=== PATIENT | female | born 1980 | race Two or more races ===

== ENCOUNTER 2018-09-25 12:47 | Emergency (ER) | payer SELFPAY ==
[~2018-09-25] VITALS: Ht 160 cm; Wt 81.6 kg
--- NOTE | 2018-09-25 13:37 | EKG ---
[facility] [address] [place] [address] Test Date: 2018-09-25 Test Time: 13:33:28 Pat Name: LUDA RODRIGUEZ Department: Room: Gender: F [employer]: : 1980 Requested By: LICHA GALLARDO Order Number: [id number] Reading MD: Measurements Intervals [place] Rate: 74 P: 21 OK: 112 QRS: 22 QRSD: 76 T: 10 QT: 370 QTc: 415 Interpretive Statements SINUS RHYTHM R-S TRANSITION ZONE IN V LEADS DISPLACED TO THE RIGHT OTHERWISE NORMAL ECG No previous ECG available for comparison
--- NOTE | 2018-09-25 13:43 | PHYS DOC ---
Adult General Chief Complaint Chief Complaint: SHORTNESS OF BREATH HPI HPI Patient is a 37 year old female who is presenting with a sensation of some shortness of breath for the last 3 weeks. She says she describes it as a globus sensation in other words she says she feels like something is stuck in her throat feels it is hard to breathe and she has intermittent tingling of bilateral hands this comes and goes throughout the day seemingly at random it seems somewhat worse at night when she is trying to sleep. She is not having any chest pain right now she has not had any recent chest pain no abdominal pain no vaginal bleeding no back pain she has been 4 times this is her fifth her last menstrual. Was a few months back. No prior history of blood clot no leg swelling. Review of Systems Review of Systems Constitutional: Denies fever or chills [] Eyes: Denies change in visual acuity, redness, or eye pain [] HENT: Denies nasal congestion or sore throat [] Respiratory: Cardiovascular: No additional information not addressed in HPI [] Musculoskeletal: Denies back pain or joint pain [] Integument: Denies rash or skin lesions [] Neurologic: Denies headache, All other systems were reviewed and found to be within normal limits, except as documented in this note. Allergies Allergies Allergies Coded Allergies Type Severity Reaction Last Updated Verified No Known Drug Allergies 09/25/18 No Physical Exam Physical Exam Constitutional: Well developed, well nourished, no acute distress, non-toxic appearance. [] HENT: Normocephalic, atraumatic, bilateral external ears normal, oropharynx moist, no oral exudates, nose normal. [] Eyes: PERRLA, EOMI, conjunctiva normal, no discharge. [] Neck: Normal range of motion, no tenderness, supple, no stridor. [] Cardiovascular:Heart rate regular rhythm, no murmur [] Lungs & Thorax: Bilateral breath sounds clear to auscultation [] Abdomen: Bowel sounds normal, soft, no tenderness, no masses, no pulsatile masses. [] Skin: Warm, dry, no erythema, no rash. [] Back: No tenderness, no CVA tenderness. [] Extremities: No tenderness, no cyanosis, no clubbing, ROM intact, no edema. [] Neurologic: Alert and oriented X 3, normal motor function, normal sensory function, no focal deficits noted. [] Psychologic: Affect normal, judgement normal, mood mild anxiety noted Current Patient Data Vital Signs Vital Signs Date Time Temp Pulse Resp B/P (MAP) Pulse Ox O2 Delivery O2 Flow Rate FiO2 09/25/18 13:15 98.3 80 20 134/81 (98) 98 Room Air 98.3 Lab Values Laboratory Tests Test 09/25/18 13:25 09/25/18 14:13 POC Urine HCG, Qualitative Hcg positive (Negative) White Blood Count 6.7 x10^3/uL (4.0-11.0) Red Blood Count 4.32 x10^6/uL (3.50-5.40) Hemoglobin 13.3 g/dL (12.0-15.5) Hematocrit 38.5 % (36.0-47.0) Mean Corpuscular Volume 89 fL (79-100) Mean Corpuscular Hemoglobin 31 pg (25-35) Mean Corpuscular Hemoglobin Concent 35 g/dL (31-37) Red Cell Distribution Width 12.5 % (11.5-14.5) Platelet Count 273 x10^3/uL (140-400) Neutrophils (%) (Auto) 67 % (31-73) Lymphocytes (%) (Auto) 23 % (24-48) L Monocytes (%) (Auto) 7 % (0-9) Eosinophils (%) (Auto) 3 % (0-3) Basophils (%) (Auto) 1 % (0-3) Neutrophils # (Auto) 4.5 x10^3uL (1.8-7.7) Lymphocytes # (Auto) 1.5 x10^3/uL (1.0-4.8) Monocytes # (Auto) 0.4 x10^3/uL (0.0-1.1) Eosinophils # (Auto) 0.2 x10^3/uL (0.0-0.7) Basophils # (Auto) 0.0 x10^3/uL (0.0-0.2) Sodium Level 138 mmol/L (136-145) Potassium Level 4.6 mmol/L (3.5-5.1) Chloride Level 105 mmol/L (98-107) Carbon Dioxide Level 23 mmol/L (21-32) Anion Gap 10 (6-14) Blood Urea Nitrogen 8 mg/dL (7-20) Creatinine 0.5 mg/dL (0.6-1.0) L Estimated GFR (Cockcroft-Gault) 139.6 BUN/Creatinine Ratio 16 (6-20) Glucose Level 94 mg/dL (70-99) Calcium Level 9.0 mg/dL (8.5-10.1) Total Bilirubin 0.3 mg/dL (0.2-1.0) Aspartate Amino Transferase (AST) 29 U/L (15-37) Alanine Aminotransferase (ALT) 29 U/L (14-59) Alkaline Phosphatase 71 U/L (46-116) Troponin I Quantitative < 0.017 ng/mL (0.000-0.055) PF-Gsa-I-Type Natriuretic Peptide 46 pg/mL (0-124) Total Protein 7.3 g/dL (6.4-8.2) Albumin 3.2 g/dL (3.4-5.0) L Albumin/Globulin Ratio 0.8 (1.0-1.7) L Laboratory Tests 09/25/18 14:13 Laboratory Tests 09/25/18 14:13 EKG EKG []EKG shows a normal sinus rhythm rate of 74 there are no acute ischemic changes noted this is interpreted by me the timing encounter. Radiology/Procedures Radiology/Procedures [] Impressions: INDINGS: A frontal view of the chest obtained. There is no infiltrate, pleural effusion or pneumothorax. The heart is normal in size. IMPRESSION: No acute pulmonary finding. Electronically signed by: Jessica Griffith MD (09/25/2018 1:53 PM) [place] [id number] DICTATED and SIGNED BY: JESSICA GRIFFITH MD DATE: 09/25/18 9114 Course & Med Decision Making Course & Med Decision Making Pertinent Labs and Imaging studies reviewed. (See chart for details) []37-year-old female who is first trimester presenting with globus sensation some mild shortness of breath normal sat normal lungs no respiratory distress at all no tachycardia and no leg swelling no signs of DVT or PE by history or examination this is strongly suggestive of anxiety/globus sensation in fact this is how she describes it specifically as though something was stuck in her throat her oropharyngeal exam is normal there is no strider she was reassured we did basic labs. pt felt better d/c home stable doncition Dragon Disclaimer Dragon Disclaimer This electronic medical record was generated, in whole or in part, using a voice recognition dictation system. Departure Departure Impression: Primary Impression: Dyspnea Disposition: 01 HOME, SELF-CARE Condition: STABLE Patient Instructions: Shortness of Breath, [id number] LICHA GALLARDO MD Sep 25, 2018 13:43
--- NOTE | 2018-09-25 13:58 | RAD ---
EXAM: Chest, single view. HISTORY: Shortness of air. COMPARISON: None. FINDINGS: A frontal view of the chest obtained. There is no infiltrate, pleural effusion or pneumothorax. The heart is normal in size. IMPRESSION: No acute pulmonary finding. Electronically signed by: Jessica Griffith MD (09/25/2018 1:53 PM) [place] [id number]
[2018-09-25 14:23] LABS: BASO % 1 % (0-3); EOS # 0.2 x10^3/uL (0.0-0.7); EOS % 3 % (0-3); HEMATOCRIT 38.5 % (36.0-47.0); HEMOGLOBIN 13.3 g/dL (12.0-15.5); LYMPH # 1.5 x10^3/uL (1.0-4.8); LYMPH % 23 % (24-48); MEAN CORPUSCULAR HEMOGLOBIN 31 pg (25-35); MEAN CORPUSCULAR HGB CONC 35 g/dL (31-37); MEAN CORPUSCULAR VOLUME 89 fL (79-100); MONO # 0.4 x10^3/uL (0.0-1.1); MONO % 7 % (0-9); NEUT # 4.5 x10^3uL (1.8-7.7); NEUT % 67 % (31-73); PLATELET COUNT 273 x10^3/uL (140-400); RED BLOOD COUNT 4.32 x10^6/uL (3.50-5.40); RED CELL DISTRIBUTION WIDTH 12.5 % (11.5-14.5); WHITE BLOOD COUNT 6.7 x10^3/uL (4.0-11.0)
[2018-09-25 14:37] LABS: CREATININE 0.5 mg/dL (0.6-1.0); GFR 139.6; POTASSIUM 4.6 mmol/L (3.5-5.1)
[2018-09-25 14:42] LABS: ALBUMIN 3.2 g/dL (3.4-5.0); ALBUMIN/GLOBULIN RATIO 0.8 (1.0-1.7); TOTAL BILIRUBIN 0.3 mg/dL (0.2-1.0); TOTAL PROTEIN 7.3 g/dL (6.4-8.2)
[2018-09-25 15:09] VITALS: BP 118/73
== END 2018-09-25 15:17 | disposition home or self-care (01) ==
LOC: ER 12:47
DX: O99.511 Diseases of the respiratory system complicating pregnancy, first trimester (principal); R06.00 Dyspnea, unspecified; R20.2 Paresthesia of skin; O99.341 Other mental disorders complicating pregnancy, first trimester; F41.9 Anxiety disorder, unspecified; Z3A.08 8 weeks gestation of pregnancy
CPT/HCPCS: 36415; 71045; 80053; 81025; 83880; 84484; 85025; 93005; 99284-25

== ENCOUNTER 2019-02-17 14:52 | Observation (INO) | payer SELFPAY ==
[2018-10-05 20:01] VITALS: BP 119/71
[~2019-02-17 14:52] MED LIST: NITR100C62 PO; ONDA4TAB7 PO
[2019-02-17] MEDS ORDERED: IV RINGERS,LACTATED 1000ML 1,000 ML IV SCH (15:03)
[2019-02-17 15:29] LABS: BILIRUBIN,URINE NEGATIVE (NEG); CLARITY,URINE CLEAR; COLOR,URINE YELLOW; NITRITE,URINE NEGATIVE (NEG); PH,URINE 6.5; PROTEIN,URINE NEGATIVE (NEG-TRACE); UROBILINOGEN,URINE 0.2 mg/dL (0.2 mg/dL)
[2019-02-17 15:43] LABS: BARBITURATES NEG (NEG); BENZODIAZEPINES NEG (NEG); CANNABINOIDS NEG (NEG); COCAINE NEG (NEG); METHADONE NEG (NEG); OPIATES NEG (NEG); PHENCYCLIDINE NEG (NEG)
[2019-02-17 15:44] LABS: BACTERIA,URINE MODERATE /HPF (0-FEW); RBC,URINE 0 /HPF (0-2); SQUAMOUS EPITHELIAL CELL,UR MANY /LPF; WBC,URINE TNTC /HPF (0-4)
[2019-02-17 15:45] LABS: AMPHETAMINE/METHAMPHETAMINE NEG (NEG)
== END 2019-02-17 16:11 | disposition home or self-care (01) ==
LOC: 3 SO LND 14:52
PROVIDERS: ADMIT Obstetrics & Gynecology; ATTEND Obstetrics & Gynecology
DX: O26.893 Other specified pregnancy related conditions, third trimester (principal); R10.30 Lower abdominal pain, unspecified; O99.89 Other specified diseases and conditions complicating pregnancy, childbirth and the puerperium; M54.5 Low back pain; Z3A.29 29 weeks gestation of pregnancy
CPT/HCPCS: 80307; 81001; 87086; G0379

== ENCOUNTER 2019-04-23 08:32 | Inpatient (IN) | payer SELFPAY ==
[~2019-04-23] VITALS: Ht 162.6 cm; Wt 95.3 kg
[2019-04-23] MEDS: IV RINGERS,LACTATED 1000ML 1,000 ML IV SCH ×3 (09:42→22:57)
[2019-04-23 09:48] LABS: BILIRUBIN,URINE NEGATIVE (NEG); CLARITY,URINE CLEAR; COLOR,URINE YELLOW; NITRITE,URINE NEGATIVE (NEG); PH,URINE 6.5; PROTEIN,URINE NEGATIVE (NEG-TRACE); UROBILINOGEN,URINE 0.2 mg/dL (0.2 mg/dL)
[2019-04-23 09:49] LABS: BACTERIA,URINE MANY /HPF (0-FEW); SQUAMOUS EPITHELIAL CELL,UR MANY /LPF; WBC,URINE 20-40 /HPF (0-4)
--- NOTE | 2019-04-23 11:43 | RAD ---
Examination: OB LIMITED History: Vaginal bleeding Comparison/Correlation: 10/05/2018 OB ultrasound EXAMINATION: OB LIMITED anatomy identified includes: Bladder, spine, bilateral lateral ventricles, stomach, heart, aorta, three-vessel cord insertion, bilateral kidneys, diaphragm, cerebellum, cisterna magna, bilateral upper extremities, and bilateral lower extremities. Cephalic lie evident. Placenta is at the anterior wall and is grade 3. Amniotic fluid index is 8.8 cm. heart rate is 145 bpm. Maternal cervical length of 4.2 cm is noted. measurements include: Biparietal diameter: 9.69 cm corresponding to 39 weeks 4 days. Femur length of 7.6 cm corresponding to 30 weeks 6 days. Head circumference of 34.03 cm corresponding to 39 weeks 1 day. Abdominal circumference of 35.29 cm corresponding to 39 weeks 1 day. Age by 4 parameters corresponds to her 39 weeks 1 day. EDC by average age is 04/29/2019. Gestational age by last menstrual period is 39 weeks 1 day. Cephalic index of 85.8 which is mildly above the normal range. H/A ratio is 0.96. FL/BPD is 78.4. FL/ AC is 21.5. IMPRESSION: Single living intrauterine gestation with age by 4 parameters corresponding to 39 weeks 1 day gestation. Cephalic lie. Placenta is at the anterior wall. No subchronic hemorrhage. Electronically signed by: Mayank Rutledge MD (04/23/2019 11:40 AM) [facility]
[2019-04-23 14:33] VITALS: BP 103/51
[2019-04-23] MEDS ORDERED: IV RINGERS,LACTATED 1000ML 1,000 ML IV SCH (15:24)
[2019-04-23] MEDS ORDERED: 0.9 % SODIUM CHLORIDE 10 ML DISP.SYRIN. IV PRN (15:30)
[2019-04-23] MEDS ORDERED: fentaNYL PF VIAL 100 MCG/2 ML VIAL IV PRN (15:30)
[2019-04-23] MEDS ORDERED: ONDANSETRON PF 4 MG/2 ML VIAL. IV PRN (15:30)
[2019-04-23] MEDS ORDERED: OXYTOCIN 30 UNIT/500 ML PREMIX 500 ML IV PRN ×2 (15:30)
[2019-04-23] MEDS ORDERED: NALBUPHINE 10 MG/ML AMPUL. IV PRN (15:30)
[2019-04-23] MEDS ORDERED: ACETAMINOPHEN 325 MG TABLET. PO PRN (15:30)
[2019-04-23] MEDS ORDERED: TERBUTALINE 1 MG/ML VIAL. SQ PRN (15:30)
[2019-04-23] MEDS ORDERED: LIDOCAINE 1% PF 30 ML VIAL. INJ PRN (15:30)
[2019-04-23 17:37] LABS: BASO % 0 % (0-3); EOS # 0.1 x10^3/uL (0.0-0.7); EOS % 1 % (0-3); HEMATOCRIT 33.9 % (36.0-47.0); HEMOGLOBIN 11.4 g/dL (12.0-15.5); LYMPH # 1.9 x10^3/uL (1.0-4.8); LYMPH % 21 % (24-48); MEAN CORPUSCULAR HEMOGLOBIN 30 pg (25-35); MEAN CORPUSCULAR HGB CONC 34 g/dL (31-37); MEAN CORPUSCULAR VOLUME 88 fL (79-100); MONO # 0.4 x10^3/uL (0.0-1.1); MONO % 5 % (0-9); NEUT # 6.8 x10^3/uL (1.8-7.7); NEUT % 74 % (31-73); PLATELET COUNT 260 x10^3/uL (140-400); RED BLOOD COUNT 3.85 x10^6/uL (3.50-5.40); RED CELL DISTRIBUTION WIDTH 12.9 % (11.5-14.5); WHITE BLOOD COUNT 9.3 x10^3/uL (4.0-11.0)
[2019-04-24] MEDS ORDERED: OXYTOCIN PREMIX 30 UNIT/500 ML NS BAG. IV ONE (05:00)
[2019-04-24] MEDS ORDERED: MMR per PROTOCOL. MC PRN (05:09)
[2019-04-24] MEDS ORDERED: ACETAMINOPHEN 325 MG TABLET. PO PRN (05:15)
[2019-04-24] MEDS ORDERED: OXYTOCIN 30 UNIT/500 ML PREMIX 500 ML IV PRN (05:15)
[2019-04-24] MEDS ORDERED: ZOLPIDEM 5 MG TABLET. PO PRN (05:15)
[2019-04-24] MEDS ORDERED: diphenhydrAMINE HCL 25 MG CAPSULE PO PRN (05:15)
[2019-04-24] MEDS ORDERED: SIMETHICONE 80 MG TAB.CHEW PO PRN (05:15)
[2019-04-24] MEDS ORDERED: IBUPROFEN 400 MG TABLET. PO PRN (05:15)
[2019-04-24] MEDS ORDERED: MAG HYDROX/ALUMINUM HYD/SIMETH 30 ML ORAL.SUSP PO PRN (05:15)
[2019-04-24] MEDS ORDERED: BENZOCAINE 20% TOPICAL AEROSOL SPRAY 57GM CAN. TP PRN (05:15)
[2019-04-24] MEDS ORDERED: HYDROCORTISONE 1% TOPICAL OINTMENT 30GM TUBE. TP PRN (05:15)
[2019-04-24] MEDS ORDERED: 0.9 % SODIUM CHLORIDE 10 ML DISP.SYRIN. IV PRN (05:15)
[2019-04-24] MEDS ORDERED: MAGNESIUM HYDROXIDE 2,400 MG/30 ML ORAL.SUSP. PO PRN (05:15)
[2019-04-24] MEDS ORDERED: PHENYLEPH/MINERAL OIL/PETROLAT RECTAL OINTMENT 57GM TUBE. RC PRN (05:15)
--- NOTE | 2019-04-24 05:15 | PDOC1 ---
OB - History Hx of Present Care: Limited Care Ultrasounds: Normal mid trimester US Obstetrical Complications: None Medical Complications: None Past Family/Social History * Past Medical, Surgical, Family and Obstetric Histories reviewed from chart. Blood Type: O+ Rubella: Immune RPR/VDRL: Negative GBS Status: Negative HBsAG: Negative OB - Chief Complaint & HPI Date of Admission: Date of Admission: Apr 23, 2019 at 14:52 Chief Complaint/History : 5 EDC: May 02, 2019 Reason for admission: active labor Admission Nurse Assessment Rev: Yes OB - Admission Exam Physical Exam Vitals: VS - Last 72 Hours, by Label Date Time Temp Pulse Resp B/P (MAP) Pulse Ox O2 Delivery O2 Flow Rate FiO2 04/23/19 14:33 98.0 20 103/51 (68) 98.0 HEENT: Normal, Nasal Mucosa Normal, Oropharynx Normal, Moist Membranes, Fontanelles Normal Heart: Regular Rate Lungs: Clear, Equal Abdomen: Gravid Extremities: Normal Pulses, No tenderness or swelling Reflexes: Normal Cervical Dilatation: 1cm Effacement: 25% Station: Ballotable Membranes: Intact Amniotic Fluid: Clear Heart Rate: Normal Accelerations: Accelerations Present Decelerations: No decelerations Short Term Variability: Present Contractions on Admission: 6-10 Minutes Apart Intensity: Mild Assessment/Plan Assessment/Plan TIUP ACS KOKO ZAVALETA MD Apr 24, 2019 05:15
--- NOTE | 2019-04-24 05:21 | PDOC ---
VAGINAL DELIVERY DATE DATE: 04/24/19 TIME: 05:19 : 5 Para: 4 EDC: May 02, 2019 VAGINAL DELIVERY: VTX VACCUM ASSISTED: No PLACENTA: Spontaneous SEX: Male WEIGHT Weight [ ] Nuchal Cord: Yes, Times 1, Loose Amniotic Fluid: Clear PAIN: Natural EPISIOTOMY: No EBL 300cc COMPLICATIONS None CONDITION Stable Signs of Intrauterine Infectio: None Shoulder Dystocia: No DIAGNOSIS TIKOKO Patel MD Apr 24, 2019 05:21
[2019-04-24] MEDS: IBUPROFEN 400 MG TABLET. PO SCH ×3 (07:28→22:00)
[2019-04-24 09:00] VITALS: BP 120/74
[2019-04-24 09:35] VITALS: BP 106/67
[2019-04-24 10:40] VITALS: BP 94/48
[2019-04-24 15:00] VITALS: BP 92/52
[2019-04-24 18:23] VITALS: BP 115/63
[2019-04-24 21:23] VITALS: BP 106/65
[2019-04-25] VITALS: BP 87/48
[2019-04-25 04:15] VITALS: BP 111/72
[2019-04-25] MEDS: IBUPROFEN 400 MG TABLET. PO SCH ×2 (06:00→21:30)
[2019-04-25] MEDS: FERROUS SULFATE 325 MG TABLET. PO SCH ×2 (08:00→17:00)
[2019-04-25 11:30] VITALS: BP 103/68
--- NOTE | 2019-04-25 14:13 | PDOC ---
Provider Note Provider Note No Complaints Uterus NTTP FU in AM Vital Sign - Last 24 Hours 04/24/19 04/24/19 04/24/19 04/25/19 15:00 18:23 21:23 00:00 Temp 97.8 98.8 97.9 98.7 97.8 98.8 97.9 98.7 Pulse 87 98 86 92 Resp 18 16 20 18 B/P (MAP) 92/52 (65) 115/63 (80) 106/65 (79) 87/48 (61) Pulse Ox 98 98 O2 Delivery Room Air Room Air Room Air Room Air 04/25/19 04:15 Temp 98.2 98.2 Pulse 85 Resp 20 B/P (MAP) 111/72 (85) O2 Delivery Room Air Intake and Output 0 04/24/19 04/24/19 04/25/19 15:00 23:00 07:00 Intake Total 1000 ml Balance 1000 ml CBC - BMP 04/25/19 06:25 KOKO ZAVALETA MD Apr 25, 2019 14:13
[2019-04-25 17:37] VITALS: BP 117/79
[2019-04-25 21:00] VITALS: BP 118/80
[2019-04-26 06:00] VITALS: BP 107/67
[2019-04-26] MEDS: IBUPROFEN 400 MG TABLET. PO SCH ×2 (06:00→08:13)
[2019-04-26] MEDS: FERROUS SULFATE 325 MG TABLET. PO SCH ×2 (08:00→08:13)
--- NOTE | 2019-04-26 09:06 | PDOC3 ---
OB DISCHARGE SUMMARY DATE OF ADMISSION: 04/24/19 DATE OF DISCHARGE: 04/26/19 REASON FOR ADMISSION: Onset of labor PROCEDURES: Ultrasound INTRAPARTUM PROCEDURES: Spontanous Vag Deliv PROCEDURES: None OPERATIONS: None DISCHARGE DIAGNOSIS: Term Delivered DISCHARGE INFORMATION: Activity, Diet HOSPITAL COURSE Unremarkable CONDITION AT DISCHARGE Stable KOKO ZAVALETA MD Apr 26, 2019 09:06
[2019-04-26] MEDS ORDERED: NAPR-514 PO (09:08)
[2019-04-26] MEDS ORDERED: HYDR-3164 PO (09:08)
[2019-04-26 09:16] VITALS: BP 109/70
[2019-04-26 12:30] VITALS: BP 107/71
== END 2019-04-26 12:30 | disposition home or self-care (01) | DRG 807 ==
LOC: 3 SO LND 08:32 → OBSVTOIN 14:52 → 3 NORTH 04-24 09:00
PROVIDERS: ADMIT Specialist; ATTEND Specialist
PROC: 10E0XZZ Delivery of Products of Conception, External Approach (ICD-10-PCS; principal; 2019-04-23)
DX: O69.81X0 Labor and delivery complicated by cord around neck, without compression, not applicable or unspecified (principal); Z37.0 Single live birth; Z3A.39 39 weeks gestation of pregnancy
CPT/HCPCS: 36415; 76815; 81001; 85014; 85025; 86592; 86850; 86900; 86901; 87086; G0378; G0379; J2590; J7120

== ENCOUNTER 2019-10-21 01:50 | Emergency (ER) | payer SELFPAY ==
[~2019-10-21] VITALS: Ht 162.6 cm; Wt 90.1 kg
[~2019-10-21 01:50] MED LIST changes: +HYDR-3164 PO; +NAPR-514 PO
[2019-10-21 01:51] VITALS: BP 134/63
[2019-10-21 02:28] LABS: BILIRUBIN,URINE NEGATIVE (NEG); CLARITY,URINE TURBID; COLOR,URINE YELLOW; NITRITE,URINE NEGATIVE (NEG); PH,URINE 6.5; PROTEIN,URINE NEGATIVE (NEG-TRACE)
[2019-10-21] MEDS ORDERED: ONDANSETRON PF 4 MG/2 ML VIAL. IV ONE (02:30)
[2019-10-21] MEDS ORDERED: IV NORMAL SALINE 1000ML BAG 1,000 ML IV SCH (02:30)
[2019-10-21 02:37] LABS: BACTERIA,URINE 0 /HPF (0-FEW); SQUAMOUS EPITHELIAL CELL,UR MOD /LPF
[2019-10-21 03:01] LABS: BASO # 0.1 x10^3/uL (0.0-0.2); BASO % 1 % (0-3); EOS # 0.1 x10^3/uL (0.0-0.7); EOS % 1 % (0-3); HEMATOCRIT 39.6 % (36.0-47.0); HEMOGLOBIN 13.1 g/dL (12.0-15.5); LYMPH # 1.6 x10^3/uL (1.0-4.8); LYMPH % 21 % (24-48); MEAN CORPUSCULAR HEMOGLOBIN 28 pg (25-35); MEAN CORPUSCULAR HGB CONC 33 g/dL (31-37); MEAN CORPUSCULAR VOLUME 85 fL (79-100); MONO # 0.5 x10^3/uL (0.0-1.1); MONO % 6 % (0-9); NEUT # 5.6 x10^3/uL (1.8-7.7); NEUT % 72 % (31-73); PLATELET COUNT 266 x10^3/uL (140-400); RED BLOOD COUNT 4.65 x10^6/uL (3.50-5.40); RED CELL DISTRIBUTION WIDTH 13.9 % (11.5-14.5); WHITE BLOOD COUNT 7.8 x10^3/uL (4.0-11.0)
--- NOTE | 2019-10-21 03:23 | PHYS DOC ---
Past Medical History Past Medical History: No Pertinent History Past Surgical History: No Surgical History Alcohol Use: Occasionally Drug Use: None Adult General Chief Complaint Chief Complaint: NAUSEA/VOMITING/DIARRHA HPI HPI Patient is a 38 year old female without history of medical problem who presents via EMS with complaint of nausea and vomiting and diarrhea. Patient complains of more than 10 episodes of nonbloody vomiting daily for the last 2 days and one episode of diarrhea without abdominal pain, fever and chills, sick contact, urinary symptom. She states her LMP was October 10 and not sure about . Review of Systems Review of Systems Constitutional: Denies fever or chills [] Eyes: Denies change in visual acuity, redness, or eye pain [] HENT: Denies nasal congestion or sore throat [] Respiratory: Denies cough or shortness of breath [] Cardiovascular: No additional information not addressed in HPI [] GI: Denies abdominal pain, reports nausea, vomiting, diarrhea [] : Denies dysuria or hematuria [] Musculoskeletal: Denies back pain or joint pain [] Integument: Denies rash or skin lesions [] Neurologic: Denies headache, focal weakness or sensory changes [] Endocrine: Denies polyuria or polydipsia [] All other systems were reviewed and found to be within normal limits, except as documented in this note. Current Medications Current Medications Current Medications Medications (Trade) Dose Ordered Sig/Abdon Start Time Stop Time Status Last Admin Dose Admin Ondansetron HCl (Zofran) 4 mg 1X ONCE 10/21/19 02:30 10/21/19 02:31 DC 10/21/19 03:31 4 MG Sodium Chloride 1,000 ml @ 1,000 mls/hr Q1H 10/21/19 02:30 10/21/19 03:29 DC 10/21/19 03:31 1,000 MLS/HR Allergies Allergies Allergies Coded Allergies Type Severity Reaction Last Updated Verified No Known Drug Allergies 09/25/18 No Physical Exam Physical Exam Constitutional: Well developed, well nourished, mild distress, non-toxic appearance. [] HENT: Normocephalic, atraumatic, bilateral external ears normal, oropharynx moist, no oral exudates, nose normal. [] Eyes: PERRLA, EOMI, conjunctiva normal, no discharge. [] Neck: Normal range of motion, no tenderness, supple, no stridor. [] Cardiovascular:Heart rate regular rhythm, no murmur [] Lungs & Thorax: Bilateral breath sounds clear to auscultation [] Abdomen: Bowel sounds normal, soft, no tenderness, no masses, no pulsatile masses. [] Skin: Warm, dry, no erythema, no rash. [] Back: No tenderness, no CVA tenderness. [] Extremities: No tenderness, no cyanosis, no clubbing, ROM intact, no edema. [] Neurologic: Alert and oriented X 3, normal motor function, normal sensory function, no focal deficits noted. [] Psychologic: Affect normal, judgement normal, mood normal. [] Current Patient Data Vital Signs Vital Signs Date Time Temp Pulse Resp B/P (MAP) Pulse Ox O2 Delivery O2 Flow Rate FiO2 10/21/19 01:51 98.7 84 18 134/63 (86) 99 Room Air 98.7 Lab Values Laboratory Tests Test 10/21/19 01:45 10/21/19 02:23 10/21/19 02:52 Urine Collection Type Unknown Urine Color Yellow Urine Clarity Turbid Urine pH 6.5 Urine Specific [place] 1.025 Urine Protein Negative mg/dL (NEG-TRACE) Urine Glucose (UA) Negative mg/dL (NEG) Urine Ketones (Stick) 15 mg/dL (NEG) Urine Blood Trace (NEG) Urine Nitrite Negative (NEG) Urine Bilirubin Negative (NEG) Urine Urobilinogen Dipstick 1.0 mg/dL (0.2 mg/dL) Urine Leukocyte Esterase Negative (NEG) Urine RBC 1-2 /HPF (0-2) Urine WBC 1-4 /HPF (0-4) Urine Squamous Epithelial Cells Mod /LPF Urine Bacteria 0 /HPF (0-FEW) Urine Mucus Marked /LPF POC Urine HCG, Qualitative Hcg negative (Negative) White Blood Count 7.8 x10^3/uL (4.0-11.0) Red Blood Count 4.65 x10^6/uL (3.50-5.40) Hemoglobin 13.1 g/dL (12.0-15.5) Hematocrit 39.6 % (36.0-47.0) Mean Corpuscular Volume 85 fL (79-100) Mean Corpuscular Hemoglobin 28 pg (25-35) Mean Corpuscular Hemoglobin Concent 33 g/dL (31-37) Red Cell Distribution Width 13.9 % (11.5-14.5) Platelet Count 266 x10^3/uL (140-400) Neutrophils (%) (Auto) 72 % (31-73) Lymphocytes (%) (Auto) 21 % (24-48) L Monocytes (%) (Auto) 6 % (0-9) Eosinophils (%) (Auto) 1 % (0-3) Basophils (%) (Auto) 1 % (0-3) Neutrophils # (Auto) 5.6 x10^3/uL (1.8-7.7) Lymphocytes # (Auto) 1.6 x10^3/uL (1.0-4.8) Monocytes # (Auto) 0.5 x10^3/uL (0.0-1.1) Eosinophils # (Auto) 0.1 x10^3/uL (0.0-0.7) Basophils # (Auto) 0.1 x10^3/uL (0.0-0.2) Sodium Level 141 mmol/L (136-145) Potassium Level 3.7 mmol/L (3.5-5.1) Chloride Level 105 mmol/L (98-107) Carbon Dioxide Level 25 mmol/L (21-32) Anion Gap 11 (6-14) Blood Urea Nitrogen 6 mg/dL (7-20) L Creatinine 0.5 mg/dL (0.6-1.0) L Estimated GFR (Cockcroft-Gault) 138.8 BUN/Creatinine Ratio 12 (6-20) Glucose Level 113 mg/dL (70-99) H Calcium Level 8.8 mg/dL (8.5-10.1) Total Bilirubin 0.3 mg/dL (0.2-1.0) Aspartate Amino Transferase (AST) 27 U/L (15-37) Alanine Aminotransferase (ALT) 39 U/L (14-59) Alkaline Phosphatase 83 U/L (46-116) Total Protein 7.3 g/dL (6.4-8.2) Albumin 3.9 g/dL (3.4-5.0) Albumin/Globulin Ratio 1.1 (1.0-1.7) Lipase 58 U/L (73-393) L Laboratory Tests 10/21/19 02:52 Laboratory Tests 10/21/19 02:52 EKG EKG [] Radiology/Procedures Radiology/Procedures [] Course & Med Decision Making Course & Med Decision Making Pertinent Labs reviewed. (See chart for details) Evaluation of patient in ER showed 38-year-old female patient with complaining of frequent episodes of nausea and vomiting for the last 2 days and few episode of diarrhea. Patient had unremarkable physical exam vital signs and labs and felt better with IV fluid and Zofran and tolerated oral intake. Patient was advised to takes liquid diet today and prescription for Zofran was given. I've spoken with the patient and/or caregivers. I've explained the patient's condition, diagnosis and treatment plan based on information available to me at this time. I've answered the patient's and/or caregivers questions and addressed any concerns. The patient and/or caregivers have a good understanding the patient's diagnosis, condition and treatment plan as can be expected at this point. Vital signs have been stabilized. The patient's condition is stable for discharge from the emergency department. The patient will pursue further outpatient evaluation with her primary care pro vider or other designated consulting physician as outlined in the discharge instructions. Patient and/or caregivers are agreeable to this plan of care and follow-up instructions have been explained in detail. The patient and/or caregivers have received these instructions in written format and expressed understanding of these discharge instructions. The patient and her caregivers are aware that if any significant change in condition or worsening of symptoms should prompt him to immediately return to this of the closest emergency department. If an emergent department is not readily available I would encourage him to call 911. Brenda Disclaimer Dragon Disclaimer This electronic medical record was generated, in whole or in part, using a voice recognition dictation system. Departure Departure Impression: Primary Impression: Acute gastroenteritis Disposition: HOME, SELF-CARE (at 0411) Condition: IMPROVED Referrals: NO PCP (PCP) Patient Instructions: Viral Gastroenteritis Additional Instructions: Drink plenty of liquids Follow-up with your primary care physician in 3-5 days Return to ER if not getting better Do not eat solid food today Scripts Ondansetron Hcl (ZOFRAN) 4 Mg Tablet 1 TAB PO PRN Q6-8HRS for nausea, #12 TAB Prov: REYNA HALL MD 10/21/19 REYNA HALL MD Oct 21, 2019 03:23
[2019-10-21 03:25] LABS: CALCIUM 8.8 mg/dL (8.5-10.1); CREATININE 0.5 mg/dL (0.6-1.0); GFR 138.8; POTASSIUM 3.7 mmol/L (3.5-5.1)
[2019-10-21 03:32] LABS: ALBUMIN 3.9 g/dL (3.4-5.0); ALBUMIN/GLOBULIN RATIO 1.1 (1.0-1.7); TOTAL BILIRUBIN 0.3 mg/dL (0.2-1.0); TOTAL PROTEIN 7.3 g/dL (6.4-8.2)
[2019-10-21] MEDS ORDERED: ONDA4TAB7 PO (04:13)
== END 2019-10-21 04:28 | disposition home or self-care (01) ==
LOC: ER 01:50
DX: K52.9 Noninfective gastroenteritis and colitis, unspecified (principal); R11.2 Nausea with vomiting, unspecified
CPT/HCPCS: 36415; 80053; 81001; 81025; 83690; 85025; 96361; 96374; 99284; J2405; J7030

== ENCOUNTER 2020-12-15 08:37 | Emergency (ER) | payer SELFPAY ==
[~2020-12-15] VITALS: Ht 160 cm; Wt 84.0 kg
[2020-12-15 08:41] VITALS: BP 152/94
[2020-12-15] MEDS ORDERED: ACETAMINOPHEN 500 MG TABLET PO ONE (08:45)
--- NOTE | 2020-12-15 09:59 | ED.ADGEN ---
Past Medical History Past Medical History: No Pertinent History Past Surgical History: No Surgical History Smoking Status: Never Smoker Alcohol Use: Occasionally Drug Use: None General Adult EDM: Chief Complaint: FEVER HPI: HPI: Patient is a 40-year-old female who presents to the emergency room complaining of diffuse body aches and fever that started this morning. Patient states that she got the Moderna Covid vaccine yesterday. She did take Tylenol prior to the vaccine but did not take any since. She states she felt fine yesterday but today has had these diffuse aches. She denies any cough, sore throat, headache, nausea, vomiting, abdominal pain, chest pain. Review of Systems: Review of Systems: Complete ROS is negative unless otherwise documented in HPI Current Medications: Current Medications Medications (Trade) Dose Ordered Sig/Abdon Start Time Stop Time Status Last Admin Dose Admin Acetaminophen (Tylenol) 1,000 mg 1X ONCE 12/15/20 08:45 12/15/20 08:48 DC 12/15/20 08:55 1,000 MG Allergies: Allergies: Allergies Coded Allergies Type Severity Reaction Last Updated Verified No Known Drug Allergies 09/25/18 No Physical Exam: PE: General: Awake, alert, NAD. Well Nourished, well hydrated. Cooperative HEENT: Atraumatic, EOMI, PERRL, airway patent, moist oral mucosa Neck: Supple, trachea midline Respiratory: CTA bilaterally, normal effort, no wheezing/crackles CV: Tachycardia, no murmur, cap refill <2 GI: Soft, nondistended, nontender, no masses MSK: No obvious deformities Skin: Warm, dry, intact Neuro: A&O x3, speech NL, sensory and motor grossly intact, no focal deficits Psych: Normal affect, normal mood, not suicidal or homicidal Current Patient Data: Vital Signs: Vital Signs Date Time Temp Pulse Resp B/P (MAP) Pulse Ox O2 Delivery O2 Flow Rate FiO2 12/15/20 08:41 98.3 116 20 152/94 (113) 96 Room Air 98.3 EKG: EKG: [] Heart Score: C/O Chest Pain: N/A Risk Factors: Risk Factors: DM, Current or recent (<one month) smoker, HTN, HLP, family history of CAD, obesity. Risk Scores: Score 0 - 3: 2.5% MACE over next 6 weeks - Discharge Home Score 4 - 6: 20.3% MACE over next 6 weeks - Admit for Clinical Observation Score 7 - 10: 72.7% MACE over next 6 weeks - Early Invasive Strategies Radiology/Procedures: Radiology/Procedures: [] Course & Med Decision Making: Course & Med Decision Making Pertinent Labs and Imaging studies reviewed. (See chart for details) Patient is a 40-year-old female who presents to the emergency room complaining of diffuse body aches and fever after vaccine yesterday. Patient does not have any other associated symptoms. Is likely that this is either viral in nature or a side effect of the vaccine. I have discussed with patient taking ibuprofen and Tylenol. We have discussed that she needs to stay hydrated. Patient's test results and vitals while in the ED were fully reviewed and discussed with the patient. Patient is stable and at this time does not need admission to the hospital. We have discussed strict return precautions and the importance of following up with their Primary Care Physician. Patient stated understanding and was given an opportunity to ask any questions. Patient is in agreement with plan. Brenda Disclaimer: Brenda Disclaimer: This electronic medical record was generated, in whole or in part, using a voice recognition dictation system. Departure Departure Impression: Primary Impression: Vaccine reaction Disposition: 01 DC HOME SELF CARE/HOMELESS Condition: STABLE Referrals: NO PCP (PCP) Patient Instructions: Fever ROLAND MARINELLI MD Dec 15, 2020 09:59
== END 2020-12-15 10:07 | disposition home or self-care (01) ==
LOC: ER 08:37
DX: R50.83 Postvaccination fever (principal); R52 Pain, unspecified
CPT/HCPCS: 99282

== ENCOUNTER 2021-04-26 21:10 | Emergency (ER) | payer SELFPAY ==
[~2021-04-26] VITALS: Ht 160 cm; Wt 95.4 kg
[2021-04-27 00:01] LABS: BILIRUBIN,URINE NEGATIVE (NEG); CLARITY,URINE CLEAR; COLOR,URINE YELLOW; NITRITE,URINE NEGATIVE (NEG); PROTEIN,URINE NEGATIVE (NEG-TRACE); UROBILINOGEN,URINE 0.2 mg/dL (0.2 mg/dL)
[2021-04-27 00:06] LABS: BACTERIA,URINE MODERATE /HPF (0-FEW); RBC,URINE 0 /HPF (0-2)
--- NOTE | 2021-04-27 00:45 | PHYS DOC ---
Past Medical History Past Medical History: No Pertinent History (ALBAN GUAN MOTOR BOSS) Past Surgical History: No Surgical History (ALBAN GUAN MOTOR BOSS) Smoking Status: Never Smoker Alcohol Use: Occasionally Drug Use: None (KIALBAN Lewis MOTOR BOSS) General Adult EDM: Chief Complaint: ABDOMINAL PAIN IN HPI: HPI: Patient is a 40 year old female 6 para 5 currently 13 weeks presenting to the ED today with multiple complaints. Patient states for the last 1 week she has had left lower quadrant/pelvic pain. Patient describes the pain as a bloating. She rates the pain is mild and intermittent. Denies any vaginal bleeding, denies any nausea vomiting. Denies any unusual vaginal discharge, denies any concerns for STDs. She is also complaining intermittent mild generalized headaches. Denies any chest pain or shortness of breath. 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 She has an appointment at the end of this month. She states her blood pressure was high at home 130s over 80s Patient speaks a little [place] and her family members interpreting for [place]ish (KIALBAN Lewis MOTOR BOSS) Review of Systems: Review of Systems: Constitutional: Denies fever or chills. [] Eyes: Denies change in visual acuity. [] HENT: Denies nasal congestion or sore throat. [] Respiratory: Denies cough or shortness of breath. [] Cardiovascular: Denies chest pain or edema. [] GI: Reports abdominal pain in , denies nausea, vomiting, bloody stools or diarrhea. [] : Denies dysuria. [] Musculoskeletal: Denies back pain or joint pain. [] Integument: Denies rash. [] Neurologic: Reports headaches, denies focal weakness or sensory changes. [] [] Psychiatric: Denies depression or anxiety. [] (ALBAN GUAN MOTOR BOSS) Heart Score: C/O Chest Pain: N/A Risk Factors: Risk Factors: DM, Current or recent (<one month) smoker, HTN, HLP, family history of CAD, obesity. Risk Scores: Score 0 - 3: 2.5% MACE over next 6 weeks - Discharge Home Score 4 - 6: 20.3% MACE over next 6 weeks - Admit for Clinical Observation Score 7 - 10: 72.7% MACE over next 6 weeks - Early Invasive Strategies (ALBAN GUAN MOTOR BOSS) Allergies: Allergies: Allergies Coded Allergies Type Severity Reaction Last Updated Verified No Known Drug Allergies 09/25/18 No (ALBAN GUAN Arsenio MOTOR BOSS) Physical Exam: PE: Constitutional: Well developed, well nourished, no acute distress, non-toxic appearance. [] HENT: Normocephalic, atraumatic, bilateral external ears normal, oropharynx moist, no oral exudates, nose normal. [] Eyes: PERRLA, EOMI, conjunctiva normal, no discharge. [] Neck: Normal range of motion, no tenderness, supple, no stridor. [] Cardiovascular:Heart rate regular rhythm, no murmur [] Lungs & Thorax: Bilateral breath sounds clear to auscultation [] Abdomen: Gravid abdomen. Bowel sounds normal, soft, no tenderness, no masses, no pulsatile masses. [] Skin: Warm, dry, no erythema, no rash. [] Back: No tenderness, no CVA tenderness. [] Extremities: No tenderness, no cyanosis, no clubbing, ROM intact, no edema. [] Neurologic: Alert and oriented X 3, normal motor function, normal sensory function, no focal deficits noted. [] Psychologic: Affect normal, judgement normal, mood normal. [] (ALBAN GUAN MOTOR BOSS) Current Patient Data: Labs: Laboratory Tests Test 04/26/21 23:50 04/26/21 23:56 Urine Collection Type Unknown Urine Color Yellow Urine Clarity Clear Urine pH 7.0 (<5.0-8.0) Urine Specific [place] <=1.005 (1.000-1.030) Urine Protein Negative mg/dL (NEG-TRACE) Urine Glucose (UA) Negative mg/dL (NEG) Urine Ketones (Stick) Negative mg/dL (NEG) Urine Blood Negative (NEG) Urine Nitrite Negative (NEG) Urine Bilirubin Negative (NEG) Urine Urobilinogen Dipstick 0.2 mg/dL (0.2 mg/dL) Urine Leukocyte Esterase Trace (NEG) Urine RBC 0 /HPF (0-2) Urine WBC 5-10 /HPF (0-4) Urine Squamous Epithelial Cells Mod /LPF Urine Bacteria Moderate /HPF (0-FEW) Urine Mucus Slight /LPF POC Urine HCG, Qualitative Hcg positive (Negative) (ALBAN GUAN Labs: Laboratory Tests Test 04/26/21 23:50 04/26/21 23:56 04/27/21 03:00 04/27/21 03:05 Urine Collection Type Unknown Urine Color Yellow Urine Clarity Clear Urine pH 7.0 (<5.0-8.0) Urine Specific [place] <=1.005 (1.000-1.030) Urine Protein Negative mg/dL (NEG-TRACE) Urine Glucose (UA) Negative mg/dL (NEG) Urine Ketones (Stick) Negative mg/dL (NEG) Urine Blood Negative (NEG) Urine Nitrite Negative (NEG) Urine Bilirubin Negative (NEG) Urine Urobilinogen Dipstick 0.2 mg/dL (0.2 mg/dL) Urine Leukocyte Esterase Trace (NEG) Urine RBC 0 /HPF (0-2) Urine WBC 5-10 /HPF (0-4) Urine Squamous Epithelial Cells Mod /LPF Urine Bacteria Moderate /HPF (0-FEW) Urine Mucus Slight /LPF Bedside Urine HCG, Qualitative Hcg positive (Negative) White Blood Count 6.0 x10^3/uL (4.0-11.0) Red Blood Count 3.64 x10^6/uL (3.50-5.40) Hemoglobin 11.5 g/dL (12.0-15.5) Hematocrit 32.8 % (36.0-47.0) Mean Corpuscular Volume 90 fL (79-100) Mean Corpuscular Hemoglobin 32 pg (25-35) Mean Corpuscular Hemoglobin Concent 35 g/dL (31-37) Red Cell Distribution Width 12.8 % (11.5-14.5) Platelet Count 205 x10^3/uL (140-400) Neutrophils (%) (Auto) 60 % (31-73) Lymphocytes (%) (Auto) 30 % (24-48) Monocytes (%) (Auto) 7 % (0-9) Eosinophils (%) (Auto) 2 % (0-3) Basophils (%) (Auto) 1 % (0-3) Neutrophils # (Auto) 3.6 x10^3/uL (1.8-7.7) Lymphocytes # (Auto) 1.8 x10^3/uL (1.0-4.8) Monocytes # (Auto) 0.4 x10^3/uL (0.0-1.1) Eosinophils # (Auto) 0.1 x10^3/uL (0.0-0.7) Basophils # (Auto) 0.0 x10^3/uL (0.0-0.2) Sodium Level 135 mmol/L (136-145) Potassium Level 3.6 mmol/L (3.5-5.1) Chloride Level 103 mmol/L (98-107) Carbon Dioxide Level 24 mmol/L (21-32) Anion Gap 8 (6-14) Blood Urea Nitrogen 7 mg/dL (7-20) Creatinine 0.6 mg/dL (0.6-1.0) Estimated GFR (Cockcroft-Gault) 111.3 BUN/Creatinine Ratio 12 (6-20) Glucose Level 90 mg/dL (70-99) Calcium Level 8.3 mg/dL (8.5-10.1) Total Bilirubin 0.1 mg/dL (0.2-1.0) Aspartate Amino Transf (AST/SGOT) 12 U/L (15-37) Alanine Aminotransferase (ALT/SGPT) 21 U/L (14-59) Alkaline Phosphatase 61 U/L (46-116) Total Protein 6.3 g/dL (6.4-8.2) Albumin 2.7 g/dL (3.4-5.0) Albumin/Globulin Ratio 0.8 (1.0-1.7) SARS-CoV-2 Antigen (Rapid) Negative (NEGATIVE) Vital Signs: Vital Signs Date Time Temp Pulse Resp B/P (MAP) Pulse Ox O2 Delivery O2 Flow Rate FiO2 04/27/21 02:33 97.0 74 18 126/80 100 Room Air 97.0 (LICHA ASTUDILLO DO) EKG: EKG: [] (ALBAN GUAN APRN) Radiology/Procedures: Radiology/Procedures: [] (ALBAN GUAN APRN) Radiology/Procedures: PROCEDURE: OB < 14 WKS STUDY: US OB <14 WKS +TV INDICATION: Abdominal pain in the setting of . COMPARISON: None during this gestation. TECHNIQUE: Transabdominal ultrasonography of the pelvis was performed. Color Doppler and duplex were utilized as appropriate. FINDINGS: Single live intrauterine gestation. heart rate of 147 bpm. Variable p resentation but mostly breech. Anterior placenta. Within normal limits amniotic fluid volume. Biparietal diameter: 3.69 cm-17 weeks 2 days Head circumference: 13.43 cm-17 weeks 0 days Abdominal circumference: 13.71 cm-19 weeks 1 day Femur length: 2.24 cm-16 weeks 5 days No evidence for placental abruption or other acute complication. Estimated gestational age by ultrasound of 17 weeks 4 days corresponding to a delivery date of 10/01/2021. Estimated gestational age by LMP of 16 weeks 6 days corresponding to a delivery date of 10/06/2021. Estimated weight of 213 g +/- 32 g IMPRESSION: 1. Single live intrauterine gestation with an estimated gestational age by ultrasound of 17 weeks 4 days corresponding to a delivery date of 10/01/2021. 2. No evidence for placental abruption or other acute abnormality to explain the patient's abdominal pain. 3. Anterior placenta. Within normal limits amniotic fluid volume. Routine follow-up for an anatomic survey at around 20 weeks is recommended. Electronically signed by: ADAM APPLE MD (04/27/2021 1:05 AM) (LICHA ASTUDILLO DO) Course & Med Decision Making: Course & Med Decision Making Pertinent Labs and Imaging studies reviewed. (See chart for details) This is a 40-year-old female patient 6 para 5 currently 13 weeks per her statement presenting today with multiple complaints including left pelvic pain, concern for blood pressure, headache, symptoms intermittently for 2 weeks. Patient's labs, ultrasound are still pending. [address] Astudillo (ALBAN GUAN APRN) Course & Med Decision Making I personally interviewed and examined this patient after signout from Alban Guan. Patient's ultrasounds within normal limits and expected for second trimester , labs are reassuring, there is bacteria on the urine which w e will treat with Macrobid. Patient otherwise hemodynamically stable and looks appropriate (LICHA ASTUDILLO DO) Dragon Disclaimer: Dragbela Disclaimer: This electronic medical record was generated, in whole or in part, using a voice recognition dictation system. (ALBAN GUAN APRN) Departure Departure Impression: Primary Impression: Abdominal pain in Disposition: 01 HOME / SELF CARE / HOMELESS Condition: STABLE Referrals: NO PCP (PCP) Patient Instructions: Abdominal Pain During , [id number] Additional Instructions: You are seen in the emergency department for abdominal pain during . Your looks appropriate on the ultrasound. Your labs were reassuring. You did have some bacteria in your urine and will need to be treated with antibiotics. Prescription sent to the [facility] Nitrofurantoin Monohyd/M-Cryst (MACROBID 100 MG CAPSULE) 100 Mg Capsule 1 CAP PO BID for 5 Days, #10 CAP 0 Refills Prov: LICHA ASTUDILLO DO 04/27/21 ALBAN GUAN APRN Apr 27, 2021 00:44 LICHA ASTUDILLO DO Apr 27, 2021 01:21
--- NOTE | 2021-04-27 01:07 | RAD ---
STUDY: US OB <14 WKS +TV INDICATION: Abdominal pain in the setting of . COMPARISON: None during this gestation. TECHNIQUE: Transabdominal ultrasonography of the pelvis was performed. Color Doppler and duplex were utilized as appropriate. FINDINGS: Single live intrauterine gestation. heart rate of 147 bpm. Variable presentation but mostly omid ech. Anterior placenta. Within normal limits amniotic fluid volume. Biparietal diameter: 3.69 cm-17 weeks 2 days Head circumference: 13.43 cm-17 weeks 0 days Abdominal circumference: 13.71 cm-19 weeks 1 day Femur length: 2.24 cm-16 weeks 5 days No evidence for placental abruption or other acute complication. Estimated gestational age by ultrasound of 17 weeks 4 days corresponding to a delivery date of 022. Estimated gestational age by LMP of 16 weeks 6 days corresponding to a delivery date of 2. Estimated weight of 213 g +/- 32 g IMPRESSION: 1. Single live intrauterine gestation with an estimated gestational age by ultrasound of 17 weeks 4 days corresponding to a delivery date of 10/01/2021. 2. No evidence for placental abruption or other acute abnormality to explain the patient's abdominal pain. 3. Anterior placenta. Within normal limits amniotic fluid volume. Routine follow-up for an anatomic survey at around 20 weeks is recommended. Electronically signed by: ADAM APPLE MD (04/27/2021 1:05 AM) [facility]
[2021-04-27 03:08] LABS: BASO % 1 % (0-3); EOS # 0.1 x10^3/uL (0.0-0.7); EOS % 2 % (0-3); HEMATOCRIT 32.8 % (36.0-47.0); HEMOGLOBIN 11.5 g/dL (12.0-15.5); LYMPH # 1.8 x10^3/uL (1.0-4.8); LYMPH % 30 % (24-48); MEAN CORPUSCULAR HEMOGLOBIN 32 pg (25-35); MEAN CORPUSCULAR HGB CONC 35 g/dL (31-37); MEAN CORPUSCULAR VOLUME 90 fL (79-100); MONO # 0.4 x10^3/uL (0.0-1.1); MONO % 7 % (0-9); NEUT # 3.6 x10^3/uL (1.8-7.7); NEUT % 60 % (31-73); PLATELET COUNT 205 x10^3/uL (140-400); RED BLOOD COUNT 3.64 x10^6/uL (3.50-5.40); RED CELL DISTRIBUTION WIDTH 12.8 % (11.5-14.5)
[2021-04-27 03:35] LABS: CALCIUM 8.3 mg/dL (8.5-10.1); CREATININE 0.6 mg/dL (0.6-1.0); GFR 111.3; POTASSIUM 3.6 mmol/L (3.5-5.1)
[2021-04-27 03:40] LABS: ALBUMIN 2.7 g/dL (3.4-5.0); ALBUMIN/GLOBULIN RATIO 0.8 (1.0-1.7); TOTAL BILIRUBIN 0.1 mg/dL (0.2-1.0); TOTAL PROTEIN 6.3 g/dL (6.4-8.2)
[2021-04-27] MEDS ORDERED: NITR100C62 PO (03:45)
[2021-04-27 03:57] VITALS: BP 126/80
--- NOTE | 2021-04-27 18:12 | NUR ---
IP: Attempted to contact pt concerning covid results. No answer, left a voicemail to return the call.
--- NOTE | 2021-04-28 09:32 | NUR ---
IP: Informed pt of negative covid test. Pt verbalized understanding.
== END 2021-04-27 03:56 | disposition home or self-care (01) ==
LOC: ER 21:10
DX: O26.892 Other specified pregnancy related conditions, second trimester (principal); R10.32 Left lower quadrant pain; Z20.822 Contact with and (suspected) exposure to COVID-19; Z3A.17 17 weeks gestation of pregnancy
CPT/HCPCS: 36415; 76801; 80053; 81001; 81025; 84702; 85025; 87086; 87426; 99284; U0003; U0005